=== PATIENT | male | born 1955 | race Caucasian/White ===

== ENCOUNTER 2019-02-25 08:55 | Inpatient (IN) ==
--- NOTE | 2019-02-17 15:51 | PAT Medication Instructions ---
Medication Instructions Date of Service February 17, 2019 Home Medications duloxetine [Cymbalta] 120 mg PO QAM finasteride 5 mg PO QAM lamotrigine 50 mg PO HS levothyroxine 75 mcg PO QAM lisinopril [Prinivil] 40 mg PO QAM methocarbamol [Robaxin-750] 750 mg PO Q8H PRN tamsulosin [Flomax] 0.8 mg PO QAM DO NOT take the morning of surgery lisinopril [Prinivil] 40 mg PO QAM methocarbamol [Robaxin-750] 750 mg PO Q8H PRN Take morning of surgery With a small sip of water, OTHERWISE NOTHING TO EAT OR DRINK AFTER MIDNIGHT: duloxetine [Cymbalta] 120 mg PO QAM finasteride 5 mg PO QAM levothyroxine 75 mcg PO QAM tamsulosin [Flomax] 0.8 mg PO QAM Take evening before surgery lamotrigine 50 mg PO HS methocarbamol [Robaxin-750] 750 mg PO Q8H PRN (if needed) Other Notes If you have any questions please call us at [phone] or [phone] or [phone] or [phone]
--- NOTE | 2019-02-18 12:01 | Anesthesiology Consultation ---
Date of Service February 18, 2019 Assessment & Plan (1) Encounter for pre-operative examination: Hx glidescope intubation: L3-L4 decompression/fusion, L4-S1 hardware removal: 03/10/18: Glidescope#3, ETT 8.0 at [facility] Chart Review Chart Review: Acceptable Risk for Surgery and Patient seen in Pre Admission Akiko costa Teaching & Discussion Pre-Anesthesia Teaching/Discussion Notes: Instructed NPO after midnight before surgery,except medications with 15 cc of water. Medication instructions provided according to the PAT guidelines. History Surgery Operation Date: 02/23/19 15:45 Proposed Procedures p C5 Corpectomy, C4-C6 Fusion with Spinal Cord Monitoring - Ken Hill DO Operation Date: 02/25/19 10:35 Proposed Procedures p C4-C6 Anterior Cervical Discectomy and Fusion, C5 Corpectomy with Spinal Cord Monitoring - Ken Hill DO Height/Weight Height: 6 ft 1 in Weight: 130.1 kg Allergies Allergy/AdvReac Type Severity Reaction Status Date / Time bupropion AdvReac Unknown INCREASED Verified 02/17/19 08:28 ANXIETY Medications Home Medications Medication Instructions Recorded Confirmed Last Taken duloxetine [Cymbalta] 120 mg PO QAM 02/17/19 02/17/19 Unknown finasteride 5 mg PO QAM 02/17/19 02/17/19 Unknown lamotrigine 50 mg PO HS 02/17/19 02/17/19 Unknown levothyroxine 75 mcg PO QAM 02/17/19 02/17/19 Unknown lisinopril [Prinivil] 40 mg PO QAM 02/17/19 02/17/19 Unknown methocarbamol [Robaxin-750] 750 mg PO Q8H PRN 02/17/19 02/17/19 Unknown tamsulosin [Flomax] 0.8 mg PO QAM 02/17/19 02/17/19 Unknown Past Medical History Medical History Anxiety BPH (benign prostatic hyperplasia) Depression HTN (hypertension) Hearing deficit B/L WILEY Hypothyroidism Obesity Osteoarthritis Sleep apnea CPAP Spinal stenosis Exercise / Class Metabolic Activity III < 4 Walking/Shop/Light housework Past Surgical History Surgical History History of colonoscopy History of inguinal herniorrhaphy RT History of lumbar fusion Past Anesthesia History Difficult Airway ( Hx glidescope intubation: L3-L4 decompression/fusion, L4-S1 hardware removal: 03/10/18: Glidescope#3, ETT 8.0 at [facility]) and No Family Hx of Anesthesia Complications History of PONV No Hx of PONV and No Hx of Motion Sickness STOP BANG Total 8 Social History Smoking Status: Former smoker tobacco type: cigarettes Do You Dip or Chew Tobacco: No Smoking End Date: QUIT 30 YEARS AGO Hx Alcohol Use: No Hx Substance Use: No substance use type: does not use Review of Systems Patient denies chest pain, shortness of breath, reflux, cough, wheezing, palpitations. Physical Exam Vital Signs VITALS BP 136/84 P 75 TEMP 98.3 SP02 96%RA RESP 16 PHYSICAL Significant decreased cervical extension 2/2 cervicalgia/stiffness. Full TMJ range of motion. 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 Testing Laboratory Results 02/18/19 12:20 PT 10.3 Seconds (9.0-12.0) 02/18/19 12:20 INR 1.0 (0.9-1.1) 02/18/19 12:20 APTT 26.7 Seconds (21.0-31.0) 02/18/19 12:20 Urine Color Yellow 02/18/19 12:20 Urine Appearance Clear (Clear) 02/18/19 12:20 Urine pH 5.0 (4.5-7.5) 02/18/19 12:20 Ur Specific [place] 1.014 (1.000-1.030) 02/18/19 12:20 Urine Protein Negative (Negative) 02/18/19 12:20 Urine Glucose (UA) Negative (Negative) 02/18/19 12:20 Urine Ketones Negative (Negative) 02/18/19 12:20 Urine Nitrite Negative (Negative) 02/18/19 12:20 Ur Leukocyte Esterase Negative (Negative) 02/18/19 12:20 Blood Type O Positive 02/18/19 12:20 Antibody Screen NEGATIVE 02/18/19 12:20 02/11/19 WBC 7.6 H/H 15.4/46.5 PLATELETS 269 Electrocardiogram Date: 02/11/19 NSR at 63bpm. RBBB. Chest X-Ray Date: 02/11/19 There are calcified (old) granuloma in RLL and left perihilar region. Heart moderately enlarged. No acute infiltrate or acute failure. No active disease.
[2019-02-18 12:42] LABS: Appearance Urine Clear (Clear); Bilirubin Urine Negative (Negative); Blood Urine Negative (Negative); Color Urine Yellow; Glucose Urine UA Negative (Negative); Ketones Urine Negative (Negative); Leukocyte Esterase Urine Negative (Negative); Nitrite Urine Negative (Negative); Protein Urine Negative (Negative); Specific Gravity Urine 1.014 (1.000-1.030); Urobilinogen Urine Negative (Negative)
[2019-02-18 12:48] LABS: BUN Creatinine Ratio 14.6 (10-20); Calcium 8.6 mg/dl (8.5-10.1); Est GFR (Non-African American) 85.4; Potassium 4.3 mmol/L (3.5-5.1)
[2019-02-18 12:51] LABS: Partial Thromboplastin Time 26.7 Seconds (21.0-31.0); Prothrombin Time 10.3 Seconds (9.0-12.0)
[~2019-02-25 08:55] MED LIST: CEFAZOLIN 3000MG 65 ML IV SCH; LR 15ML/HR IV SCH
[2019-02-25] MEDS ORDERED: ATROPINE SULFATE 0.1 MG/ML 10ML SYR IV PRN (10:11)
[2019-02-25] MEDS ORDERED: ePHEDrine sulfate 50 MG/ML AMP IV PRN (10:11)
--- NOTE | 2019-02-25 10:18 | History & Physical Bridge Note ---
Date of Service February 25, 2019 History & Physical Bridge Note I have examined the patient, reviewed the History & Physical and in the interval since the performance of the History & Physical I have noted the following changes of clinical significance: no changes noted
--- NOTE | 2019-02-25 10:19 | History & Physical Report ---
Date of Service February 25, 2019 Assessment & Plan (1) Cervical stenosis of spinal canal: C4-C6 fusion C5 corpectomy Present on Admission?: Yes History of Present Illness Chief Complaint: Neck and arm pain Primary Care Provider: Rex Law MD This is a 63-year-old male that presents with chronic persistent neck and arm pain. After failing course of nonoperative care is here for surgical intervention. Allergies Allergy/AdvReac Type Severity Reaction Status Date / Time bupropion AdvReac Unknown INCREASED Verified 02/25/19 09:18 ANXIETY Home Medications Home Medications Medication Instructions Recorded Confirmed Type duloxetine [Cymbalta] 120 mg PO QAM 02/17/19 02/25/19 History finasteride 5 mg PO QAM 02/17/19 02/25/19 History lamotrigine 50 mg PO HS 02/17/19 02/25/19 History levothyroxine 75 mcg PO QAM 02/17/19 02/25/19 History lisinopril [Prinivil] 40 mg PO QAM 02/17/19 02/25/19 History methocarbamol [Robaxin-750] 750 mg PO Q8H PRN 02/17/19 02/25/19 History tamsulosin [Flomax] 0.8 mg PO QAM 02/17/19 02/25/19 History Past Med/Surg History Medical History Anxiety BPH (benign prostatic hyperplasia) Depression HTN (hypertension) Hearing deficit B/L WILEY Hypothyroidism Obesity Osteoarthritis Sleep apnea CPAP Spinal stenosis Surgical History History of colonoscopy History of inguinal herniorrhaphy RT History of lumbar fusion Social History Preferred Language: Belgian Communication Ability: Effective Yacht Builder Required: No Beliefs That Will Affect Care: None Current Living Situation: Spouse Other Information That Helps Us Care for You: No Feels Safe at Home: Yes Safety Concerns: Feels Safe At This Time Smoking Status: Former smoker Tobacco Type: cigarettes ; Do You Dip or Chew Tobacco: No ; Smoking End Date: QUIT 30 YEARS AGO ; Second Hand Exposure: No ; Tobacco Cessation Education Requested by Patient: No Hx Alcohol Use: No Hx Substance Use: No Physical Exam Physical Exam: Patient is alert and oriented neurologically intact. Results & Data Vital Signs (Past 12 Hours) Vital Signs Temp Pulse Resp BP Pulse Ox 02/25/19 09:05 37 C 72 20 155/91 H 98
[2019-02-25] MEDS ORDERED: BACITRACIN INJ 50,000 UNIT VIAL ONE (10:22)
[2019-02-25] MEDS ORDERED: NEOSTIGMINE METHYLSULFATE 1 MG/ML 10ML VIAL ONE (10:23)
[2019-02-25] MEDS ORDERED: ePHEDrine sulfate 50 MG/ML AMP ONE (10:23)
[2019-02-25] MEDS ORDERED: GLYCOPYRROLATE 0.2 MG/ML VIAL ONE (10:23)
[2019-02-25] MEDS ORDERED: DEXAMETHASONE SOD INJ 4 MG/ML VIAL ONE (10:23)
[2019-02-25] MEDS ORDERED: PHENYLEPHRINE HCL 10 MG/ML VIAL ONE (10:23)
[2019-02-25] MEDS ORDERED: ONDANSETRON INJ 2 MG/ML 2 ML VIAL ONE (10:23)
[2019-02-25] MEDS ORDERED: SUCCINYLCHOLINE CHLORIDE 20 MG/ML 10 ML VIAL ONE (10:23)
[2019-02-25] MEDS ORDERED: PROPOFOL IV EMULSION 10 MG/ML 20 ML VIAL IV ONE ×3 (10:23→12:06)
[2019-02-25] MEDS ORDERED: LIDOCAINE HCL 2% 2 ML VIAL/AMP(20MG/ML) INFIL ONE (10:23)
[2019-02-25] MEDS ORDERED: MIDAZOLAM HCL 1 MG/ML 2ML VIAL ONE (10:24)
[2019-02-25] MEDS ORDERED: fentaNYL citrate 100 MCG/2 ML VIAL ONE ×2 (10:24→11:56)
[2019-02-25] MEDS ORDERED: HYDROmorphone INJ 2 MG/ML SYR/VIAL ONE (11:51)
[2019-02-25] MEDS ORDERED: ROCURONIUM BROMIDE 10 MG/ML 5 ML VIAL ONE (12:06)
[2019-02-25] MEDS ORDERED: FLOSEAL HEMOSTATIC MATRIX 10ML TOP ONE (12:31)
--- NOTE | 2019-02-25 12:39 | Operative Report ---
Post Operative Report Pre & Post Diagnosis Operation Date: 02/23/19 15:45 <No data on this case meets the specified criteria> Operation Date: 02/25/19 10:35 Pre-Op Diagnosis: Cervical spinal stenosis with myeloradiculopathy Post-Op Diagnosis: Same Procedure Operation Date: 02/23/19 15:45 <No data on this case meets the specified criteria> Operation Date: 02/25/19 10:35 Actual Procedures #1 anterior cervical corpectomy with bilateral foraminotomies C5. #2 anterior cervical arthrodesis C4-C6. #3 placement of Spira titanium cage 27 mm in height C4-C6. #4 placement of locally harvested morselized autograft combined with DBM and interbody cage. #5 placement of alvarez plate and screws from C4-C6. Surgeon Ken Hill, DO Crucible Packer None Estimated Blood Loss 25 Findings See Below Patient is 6 foot 1 inches tall weighing over 128 kg with a BMI in excess of 37. Patient's body habitus added significant technical difficulty both with patient positioning exposure and performing the decompression of the spine. It added at least 40% increase in operative time. Specimens None Indications This is a 63-year-old male well-known to me that presents with above-mentioned diagnosis in light of his cord compression and myelomalacia elected to undergo the above-mentioned procedure. Description of Procedure Patient was met with identified and informed consent obtained. Patient was then taken to the operative suite underwent intubation placed in the supine position the head Mcmullen head of history. All bony prominences well-padded eyes inspected to ensure no external pressure placed upon the peer at this point the anterior cervical spine was prepped and draped in a normal sterile fashion. Sharp dissection with the assistance of bipolar electrocautery was then performed exposing the anterior cervical spine from C4-C6. A self retainer retractor was placed. I then performed a complete discectomy of C4-5 out to the uncovertebral joints bilaterally followed byc5 6. [place] distracting pins were then placed in C4 and C6 to distract across the C5 vertebral body. A complete corpectomy was then performed including removal of all posterior annular fibers longitudinal ligament and a herniated fragment as well as bilateral foraminotomies. The endplates were then burred to subcortical being bone and a 27 mm titanium cage filled with locally harvested morselized autograft and DBM bone graft tapped in position. Distraction apparatus was removed and a alvarez plate and screws applied with the assistance of fluoroscopy. The incision was then copiously irrigated explored to ensure no damage to surrounding structures remaining bleeding. A 10 round VINI drain was inserted. The incision was closed with 2 Vicryl in the fashion of 4 Monocryl for final skin closure. Steri-Strip sterile dressings placed. Patient was awakened taken to PACU stable condition. Please note spinal cord monitoring was utilized throughout the procedure no changes noted. I attest to the content of the Intraoperative Record and any orders documented therein. Any exceptions are noted below.
--- NOTE | 2019-02-25 12:52 | Fluoroscopy Report ---
FL cervical 2-3V CLINICAL HISTORY: C4-C6 ACDF, C5 CORPECTOMY COMPARISON STUDY: None. FLUOROSCOPY TIME: 12 seconds. FINDINGS: 2 fluoroscopic spot images of the cervical spine demonstrate anterior cervical discectomy a nd fusion from C4 through C6 with a C5 corpectomy and metallic cage. Hardware appears intact. IMPRESSION: Fluoroscopy provided for C4-C6 ACDF. Electronically signed by: Pernell Limon M.D. 02/25/2019 12:51 PM
[2019-02-25] MEDS: HYDROmorphone INJ 2 MG/ML SYR/VIAL IV PRN ×4 (13:07→13:30)
[2019-02-25] MEDS: HYDROmorphone INJ 0.5 MG/0.5 ML SYR IV PRN ×3 (13:36→18:30)
[2019-02-25] MEDS ORDERED: MAGNESIUM HYDROXIDE SUSP 30 ML UDC PO PRN (14:53)
[2019-02-25] MEDS ORDERED: METHOCARBAMOL 750 MG TABLET PO PRN (14:53)
[2019-02-25] MEDS ORDERED: NALOXONE HCL 0.4 MG/1 ML VIAL/CARP IV PRN (14:53)
[2019-02-25] MEDS ORDERED: RACEPINEPHRINE 2.25% NEBU SOLN 0.5 ML VIAL INH PRN (14:53)
[2019-02-25] MEDS ORDERED: DEXAMETHASONE SOD PHOSPHATE 8 MG in SYRINGE 0 ML IV PRN (14:53)
[2019-02-25] MEDS ORDERED: ACETAMINOPHEN 1,000 MG/100 ML VIAL IV PRN (14:53)
[2019-02-25] MEDS ORDERED: DO NOT ADMINISTER PNEUMOCOCCAL VACCINE PRN (14:53)
[2019-02-25] MEDS ORDERED: DiphenhydrAMINE HCL 50 MG/ML VIAL IV PRN (14:53)
[2019-02-25] MEDS ORDERED: LORazepam 0.5 MG/1 ML VIAL IV PRN (14:53)
[2019-02-25] MEDS ORDERED: HYDROmorphone INJ 0.5 MG/0.5 ML SYR IV PRN (14:53)
[2019-02-25] MEDS ORDERED: DO NOT ADMINISTER FLU VACCINE PRN (14:53)
[2019-02-25] MEDS ORDERED: LORazepam 0.5 MG TAB PO PRN (14:53)
[2019-02-25] MEDS: SODIUM CHLORIDE 0.9% 1000ML 1,000 ML IV SCH (15:11)
[2019-02-25] MEDS ORDERED: SCOPOLAMINE 1.5 MG TDSY TD SCH (15:15)
--- NOTE | 2019-02-25 16:23 | Anesthesiology Progress Note ---
Date of Service February 25, 2019 Anesthesia Post Procedure Vital Signs Vital Signs: Temp Pulse Pulse Resp BP Pulse Ox 02/25/19 15:43 36.7 C 88 16 123/70 94 02/25/19 15:30 86 20 97 02/25/19 15:15 36.6 C 83 15 130/74 95 02/25/19 14:45 36.6 C 90 15 144/82 H 96 02/25/19 14:20 92 H 14 137/81 94 02/25/19 14:10 87 14 153/95 H 94 02/25/19 14:00 36.6 C 78 14 157/88 H 95 02/25/19 13:50 78 14 155/86 H 93 02/25/19 13:40 82 16 167/89 H 96 02/25/19 13:30 83 16 168/95 H 93 02/25/19 13:20 82 16 161/97 H 96 02/25/19 13:10 81 14 180/91 H 95 02/25/19 13:00 91 H 14 166/85 H 95 02/25/19 12:54 36.2 C L 92 H 14 174/99 H 94 02/25/19 09:05 37 C 72 20 155/91 H 98 Pain Intensity Lower Neck: Pain Intensity: 4 Transfer of Care Handoff Completed per policy Notes Mental Status: alert / awake / arousable Patient Amnestic to Procedure: Yes Nausea / Vomiting: adequately controlled Pain: adequately controlled Airway Patency, RR, SpO2: stable & adequate BP & HR: stable & adequate Hydration State: stable & adequate Anesthetic Complications: no major complications apparent and Pt Satisfied with anesthetic care
[2019-02-25] MEDS: OXYCODONE HCL IR 5 MG TAB (IMMEDIATE RELEASE) PO PRN ×2 (17:22→23:00)
[2019-02-25] MEDS: CEFAZOLIN 2000MG 2,000 MG/15 ML SYR IV SCH (18:24)
[2019-02-25] MEDS ORDERED: HYDROmorphone INJ 1 MG/ML SYRINGE ONE (18:42)
[2019-02-25] MEDS: lamoTRIgine 25 MG TAB PO SCH (20:37)
[2019-02-25] MEDS: DOCUSATE SODIUM 100 MG CAP PO SCH (20:37)
[2019-02-25] MEDS: HYDROmorphone INJ 1 MG/ML SYRINGE IV PRN (20:37)
[2019-02-25] MEDS: CHECK SCOPOLAMINE PATCH PLACEMENT SCH (23:49)
[2019-02-26] MEDS: ONDANSETRON INJ 2 MG/ML 2 ML VIAL IV PRN ×2 (01:41→11:15)
[2019-02-26] MEDS: CEFAZOLIN 2000MG 2,000 MG/15 ML SYR IV SCH ×2 (02:00→11:07)
[2019-02-26] MEDS: HYDROmorphone INJ 1 MG/ML SYRINGE IV PRN ×3 (02:15→14:13)
[2019-02-26] MEDS: SODIUM CHLORIDE 0.9% 1000ML 1,000 ML IV SCH (03:58)
[2019-02-26] MEDS: LEVOTHYROXINE SODIUM 75 MCG TABLET PO SCH (05:52)
[2019-02-26] MEDS: OXYCODONE HCL IR 5 MG TAB (IMMEDIATE RELEASE) PO PRN ×3 (07:21→17:41)
[2019-02-26] MEDS: DOCUSATE SODIUM 100 MG CAP PO SCH ×2 (08:30→20:40)
[2019-02-26] MEDS: TAMSULOSIN HCL 0.4 MG CAP PO SCH (08:30)
[2019-02-26] MEDS: LISINOPRIL 40 MG TAB PO SCH (08:30)
[2019-02-26] MEDS: FINASTERIDE 5 MG TAB PO SCH (08:31)
[2019-02-26] MEDS: DULOXETINE HCL 60 MG CAP PO SCH (08:32)
[2019-02-26] MEDS: CHECK SCOPOLAMINE PATCH PLACEMENT SCH ×3 (08:37→23:25)
--- NOTE | 2019-02-26 10:15 | Orthopedic Progress Note ---
Date of Service February 26, 2019 Assessment & Plan (1) Cervical stenosis of spinal canal: At this time he is having some difficulty swallowing. He has no hoarseness. I will initiate a course of IV Decadron to help with his swelling. We will continue on a clear liquid diet. He may ambulate as tolerated. We will maintain the drain today. Present on Admission?: Yes Subjective Patient complaining of some anterior neck pain. Arm symptoms markedly improved. He is swallowing liquids but not solids at this time. Physical Exam Physical Exam: On exam his neck is supple. There is no evidence of swelling. There is no drainage. He has excellent strength testing upper extremities. Results & Data Vital Signs (Past 12 Hours) Vital Signs Temp Pulse Pulse Resp BP BP Pulse Ox 02/26/19 09:50 37 C 70 14 125/73 94 02/26/19 07:29 37 C 67 16 126/73 96 02/26/19 07:19 72 16 93 02/26/19 05:50 36.8 C 66 16 152/83 H 98 02/26/19 03:50 36.7 C 76 16 134/77 97 02/26/19 03:40 75 14 96 02/26/19 01:54 36.9 C 78 18 160/85 H 93 02/25/19 23:55 36.6 C 72 16 137/82 95 02/25/19 23:05 88 16 96
[2019-02-26] MEDS: LACTATED RINGER'S 1,000 ML IV SCH ×2 (11:07→19:51)
[2019-02-26] MEDS: DEXAMETHASONE SOD PHOSPHATE 8 MG in SYRINGE 0 ML IV SCH ×3 (11:08→23:24)
[2019-02-26] MEDS: lamoTRIgine 25 MG TAB PO SCH (20:40)
[2019-02-26 22:58] VITALS: TEMP 97.9
[2019-02-27] MEDS: LEVOTHYROXINE SODIUM 75 MCG TABLET PO SCH (05:40)
[2019-02-27] MEDS: DEXAMETHASONE SOD PHOSPHATE 8 MG in SYRINGE 0 ML IV SCH ×2 (05:41→10:41)
[2019-02-27] MEDS: CHECK SCOPOLAMINE PATCH PLACEMENT SCH (08:05)
[2019-02-27] MEDS: LISINOPRIL 40 MG TAB PO SCH (08:05)
[2019-02-27] MEDS: DOCUSATE SODIUM 100 MG CAP PO SCH (08:05)
[2019-02-27] MEDS: TAMSULOSIN HCL 0.4 MG CAP PO SCH (08:05)
[2019-02-27] MEDS: FINASTERIDE 5 MG TAB PO SCH (08:05)
[2019-02-27] MEDS: DULOXETINE HCL 60 MG CAP PO SCH (08:05)
[2019-02-27 08:45] VITALS: BP 150/85
[2019-02-27 11:01] VITALS: PULSE 65; O2SAT 95
--- NOTE | 2019-02-27 11:36 | Discharge Summary ---
Date of Service February 27, 2019 Admission HPI Per Admitting Provider This is a 63-year-old male that presents with chronic persistent neck and arm pain. After failing course of nonoperative care is here for surgical intervention. Principal Diagnosis Cervical spinal stenosis with myeloradiculopathy Discharge Data Allergies Allergy/AdvReac Type Severity Reaction Status Date / Time bupropion AdvReac Unknown INCREASED Verified 02/25/19 09:18 ANXIETY Procedures Performed Operation Date: 02/23/19 15:45 <No data on this case meets the specified criteria> Operation Date: 02/25/19 10:35 Actual Procedures p C4-C6 Anterior Cervical Discectomy and Fusion, C5 Corpectomy with Spinal Cord Monitoring - Ken Hill DO Ordered Studies 02/25/19 10:35 FL cervical 2-3V Routine FL fluoroscopy <1hr Routine Hospital Course (1) Cervical stenosis of spinal canal: Patient underwent anterior cervical corpectomy tolerated as well as taken to the orthopedic floor postoperatively. Postop day #1 his arm symptoms are markedly improved. He is struggling with some cervicalgia and swallowing diffic ulties. I initiated a course of IV Decadron and IV fluids. The following day he was improved substantially. VINI drain putting out 5 cc. Subsequently discharged home. Discharge orders instructions found in the chart for further review. Total Time Total Time Spent Total Time Spent (In Minutes): 20 minutes Discharge Plan Discharge Items Patient Disposition: Home - Self-Care Reason For Visit: Spinal Stenosis, Cervical Region Discharge Diagnosis: Cervical spinal stenosis with myeloradiculopathy Discharge Goals: Improve function Activity: Per 'Additional Instructions' section Non-emergency contact: Primary Care Provider Call non-emergency contact if: you have any medication questions Follow-up/Referrals: Rex Law MD [Primary Care Provider] - Diet: Regular Addtl Provider Instructions: ACTIVITY RECOMMENDATIONS: SELF CARE INSTRUCTIONS AFTER CERVICAL FUSIONS 1. No smoking. Smoking drastically decreases the chance of a solid fusion. 2. No bending, lifting more than 5 pounds, or twisting (roll like a log when turning in bed). 3. You may shower 3 days after surgery. Thoroughly dry wound. Do not soak in the tub. 4. Cervical collar: Must be worn at all times including sleeping. You may remove the brace only to bath, eat and if you are sitting in a recliner. 5. Please walk as much as you can for exercise. Gradually increase the distance that you walk as your endurance increases. SPECIAL CARE INSTRUCTIONS: VERY IMPORTANT TO READ AND REVIEW A. Do not take any anti-inflammatory medications (i.e. Indocin, Advil, Aspirin, Naprosyn, Aleve, Motrin, etc.) as these may inhibit the chance of a solid fusion. Tylenol is okay to take. B. Your surgical incision has been closed with a cosmetic suture under the skin that will dissolve in about 6 weeks. In 14 days, you can use a pair of clean scissors and cut the suture that is left outside of the skin at the ends of your incision. C. Complications are uncommon, but please contact us if you have any signs or symptoms of: 1. wound infection (fever higher than 102.5 degrees F, redness, separation of wound, drainage, or increasing pain from the incision) 2. blood clots in legs (pain, swelling, redness and warmth in legs) 3. urinary tract infection (fever higher than 102.5 degrees, burning upon urination or increased frequency of urination) 4. nerve problems (inability to walk on your toes or heels, numbness, loss of bowel or bladder control) 5. any other symptoms that concern you. D. Please call the office at if you have any concerns or questions about your operation or recovery. MANAGING PAIN AFTER SPINAL SURGERY 1. Narcotic medication is intended for short-term use and will be provided for surgical pain. Surgical pain usually lasts for a period of 4-6 weeks. Narcotic medication includes Percocet, Vicodin, Darvocet, Tylenol #3 or Lortab. 2. Longer-term pain is more appropriately treated with non-narcotic medication such as Tylenol ES. 3. Muscle spasm is not appropriately treated with narcotics. Muscle relaxers such as Soma, Flexeril or Skelaxin can be used along with Tylenol ES. 4. Remember that we all live with some "aches and pains". This is not unusual or uncommon after an injury or as we get older. 5. We will provide appropriate medication within the normal guidelines of their prescribed use. We will also be very cautious and aware of potential abuse and extended duration of patients' medication needs. 6. Please allow 2-3 days to process refills. Prescriptions will not be mailed but must be picked up at the office. FOLLOW UP VISIT: Keep your scheduled follow-up appointment. Any questions, please call the office at . Prescriptions: New oxycodone 5 mg Tablet 5 mg PO Q4H PRN (Reason: Pain) Qty: 30 RF: 0 Continued lisinopril [Prinivil] 20 mg Tablet 40 mg PO QAM RF: 0 lamotrigine 25 mg Tablet 50 mg PO HS RF: 0 levothyroxine 75 mcg Tablet 75 mcg PO QAM RF: 0 methocarbamol [Robaxin-750] 750 mg Tablet 750 mg PO Q8H PRN (Reason: Muscle Spasm) RF: 0 tamsulosin [Flomax] 0.4 mg Capsule 0.8 mg PO QAM RF: 0 finasteride 5 mg Tablet 5 mg PO QAM RF: 0 duloxetine [Cymbalta] 60 mg Capsule,Delayed Release(Dr/Ec) 120 mg PO QAM RF: 0 Stand-Alone Forms: [facility] Discharge Orders: Discharge Order (Routine); Ordered 02/27/19 Ordered By: Ken Hill Admission Data Admit Date/Time: 02/25/19 12:43 Attending Provider: Ken Hill Admit Provider: Ken Hill Primary Care Provider: Rex Law I. Service: Surgical Services
[2019-02-27] MEDS ORDERED: BISACODYL 5 MG TABEC PO PRN (12:42)
== END 2019-02-27 12:48 | disposition home or self-care (01) | DRG 472 ==
LOC: ASU 08:55 → 3E 12:43

== ENCOUNTER 2019-06-01 05:55 | Inpatient (IN) ==
--- NOTE | 2019-05-17 08:54 | Anesthesiology Consultation ---
Date of Service May 17, 2019 Assessment & Plan (1) Encounter for pre-operative examination: Chart Review Chart Review: Acceptable Risk for Surgery and Patient seen in Pre Admission Testing Consults Requested none History Surgery Operation Date: 06/01/19 13:05 Proposed Procedures p Spinal Cord Stimulator Trial - Ken Hill DO Height/Weight Height: 6 ft 1 in Weight: 132.9 kg Allergies Allergy/AdvReac Type Severity Reaction Status Date / Time bupropion AdvReac Unknown INCREASED Verified 05/11/19 14:32 ANXIETY Medications Home Medications Medication Instructions Recorded Confirmed Last Taken duloxetine [Cymbalta] 120 mg PO QAM 02/17/19 05/11/19 02/25/19 06:00 finasteride 5 mg PO QAM 02/17/19 05/11/19 02/25/19 06:00 lamotrigine 50 mg PO HS 02/17/19 05/11/19 02/24/19 20:00 levothyroxine 75 mcg PO QAM 02/17/19 05/11/19 02/25/19 06:00 lisinopril [Prinivil] 40 mg PO QAM 02/17/19 05/11/19 02/24/19 07:00 methocarbamol [Robaxin-750] 750 mg PO Q8H PRN 02/17/19 05/11/19 3 Days Ago ~02/22/19 tamsulosin [Flomax] 0.8 mg PO QAM 02/17/19 05/11/19 02/25/19 06:00 Past Medical History Medical History Anxiety BPH (benign prostatic hyperplasia) Chronic back pain ALSO TESTICULAR PAIN Depression HTN (hypertension) Hearing deficit B/L WILEY Hypothyroidism Obesity Osteoarthritis Sleep apnea CPAP Spinal stenosis Exercise / Class Metabolic Activity II 4-5 Yardwork/Stairs/Walk up hill Past Surgical History Surgical History History of colonoscopy History of inguinal herniorrhaphy RT History of lumbar fusion Hx of cervical spine surgery 02/25/2019. Grade 1 view. Elective glidescope #4. NO issues. Past Anesthesia History No Hx of Anesthesia Complications and No Family Hx of Anesthesia Complications History of PONV No Hx of PONV and No Hx of Motion Sickness Social History Smoking Status: Former smoker tobacco type: cigarettes Do You Dip or Chew Tobacco: No Smoking End Date: 34 YR AGO Hx Alcohol Use: No Hx Substance Use: No substance use type: does not use Physical Exam Vital Signs Last Vital Signs Temp 36.9 C 05/17/19 08:34 Pulse 79 05/17/19 08:34 Resp 18 05/17/19 08:34 BP 135/83 05/17/19 08:34 Pulse Ox 97 05/17/19 08:34 Constitutional + obese ENMT Mouth: + dental restorations (cap); no TMJ abnormality, no TMJ clicking and motion of mouth not restricted Neck normal visual inspection, + short neck and + thick neck Respiratory normal respiratory effort and + respiratory distress Cardiovascular Rate/Rhythm: regular rate and regular rhythm Musculoskeletal Spine: + limited cervical ROM (slightly difficulty with swallowing liquids but able to be supine ); no pain with cervical ROM Neurologic moves all extremities Motor/Sensory: no sensory deficit Psychiatric Orientation: alert and oriented x 3 Testing Laboratory Results Labs 05/06/2019: Na 140, K 4.6, Cl 107, bicarb 29, BUN 15, creat 0.8, glucose 76 WBC 6., hgb 14.9, hct 45.1, plt 245 Electrocardiogram Date: 02/11/19 NSR at 63bpm. RBBB. Chest X-Ray Date: 02/11/19 There are calcified (old) granuloma in RLL and left perihilar region. Heart moderately enlarged. No acute infiltrate or acute failure. No active disease.
[2019-06-01] MEDS ORDERED: CeleBREX 200 MG CAP PO SCH (06:00)
[2019-06-01] MEDS ORDERED: ACETAMINOPHEN 500 MG TAB PO SCH (06:00)
[2019-06-01] MEDS ORDERED: GABAPENTIN 600 MG DOSE PO SCH (06:00)
[2019-06-01] MEDS ORDERED: LR 15ML/HR IV SCH (06:00)
[2019-06-01] MEDS ORDERED: CEFAZOLIN 3000MG 72.5 ML IV SCH (06:00)
[2019-06-01] MEDS ORDERED: fentaNYL citrate 100 MCG/2 ML VIAL ONE ×3 (06:39→08:46)
[2019-06-01] MEDS ORDERED: MIDAZOLAM HCL 1 MG/ML 2ML VIAL ONE (06:39)
[2019-06-01] MEDS ORDERED: HYDROmorphone INJ 2 MG/ML SYR/VIAL ONE (06:39)
[2019-06-01] MEDS ORDERED: BACITRACIN INJ 50,000 UNIT VIAL ONE (07:06)
[2019-06-01] MEDS ORDERED: BUPIVACAINE/EPINEPHRINE 0.25% 1:200,000 30 ML VIAL ONE (07:06)
--- NOTE | 2019-06-01 07:27 | History & Physical Bridge Note ---
Date of Service June 01, 2019 History & Physical Bridge Note I have examined the patient, reviewed the History & Physical and in the interval since the performance of the History & Physical I have noted the following changes of clinical significance: no changes noted
--- NOTE | 2019-06-01 07:29 | History & Physical Report ---
Date of Service June 01, 2019 Assessment & Plan (1) Chronic back pain greater than 3 months duration: Spinal cord stimulator trial Present on Admission?: Yes History of Present Illness Chief Complaint: Back and leg pain Primary Care Provider: Rex Law MD This is a 64-year-old male known to me that presents with chronic persistent back and leg pain. After failing extensive course of nonoperative care is here for surgical intervention. Allergies Allergy/AdvReac Type Severity Reaction Status Date / Time bupropion AdvReac Unknown INCREASED Verified 06/01/19 06:29 ANXIETY Home Medications Home Medications Medication Instructions Recorded Confirmed Type duloxetine [Cymbalta] 120 mg PO QAM 02/17/19 06/01/19 History finasteride 5 mg PO QAM 02/17/19 06/01/19 History lamotrigine 50 mg PO HS 02/17/19 06/01/19 History levothyroxine 75 mcg PO QAM 02/17/19 06/01/19 History lisinopril [Prinivil] 40 mg PO QAM 02/17/19 06/01/19 History methocarbamol [Robaxin-750] 750 mg PO Q8H PRN 02/17/19 06/01/19 History tamsulosin [Flomax] 0.8 mg PO QAM 02/17/19 06/01/19 History Past Med/Surg History Surgical History (Updated 05/17/19 @ 08:51 by Vincent Nix MD) History of colonoscopy History of inguinal herniorrhaphy RT History of lumbar fusion Hx of cervical spine surgery 02/25/2019. Grade 1 view. Elective glidescope #4. NO issues. Social History Preferred Language: German Communication Ability: Effective Zigzagger Required: No Beliefs That Will Affect Care: None Current Living Situation: Spouse Feels Safe at Home: Yes Safety Concerns: Feels Safe At This Time Smoking Status: Former smoker Tobacco Type: cigarettes ; Do You Dip or Chew Tobacco: No ; Smoking End Date: 34 YR AGO ; Second Hand Exposure: No ; Hx Alcohol Use: No Hx Substance Use: No Physical Exam Physical Exam: Patient is alert and oriented neurologically intact. Results & Data Vital Signs (Past 12 Hours) Vital Signs Temp Pulse Resp BP Pulse Ox 06/01/19 06:32 36.9 C 70 18 168/96 H 97
[2019-06-01] MEDS ORDERED: DEXAMETHASONE SOD INJ 4 MG/ML VIAL ONE (08:13)
[2019-06-01] MEDS ORDERED: ROCURONIUM BROMIDE 10 MG/ML 5 ML VIAL ONE (08:13)
[2019-06-01] MEDS ORDERED: LIDOCAINE HCL 2% 2 ML VIAL/AMP(20MG/ML) INFIL ONE (08:13)
[2019-06-01] MEDS ORDERED: ePHEDrine sulfate 50 MG/ML SYR ONE (08:13)
[2019-06-01] MEDS ORDERED: ONDANSETRON INJ 2 MG/ML 2 ML VIAL ONE (08:13)
[2019-06-01] MEDS ORDERED: NEOSTIGMINE METHYLSULFATE 1 MG/ML 10ML VIAL ONE (08:13)
[2019-06-01] MEDS ORDERED: PROPOFOL IV EMULSION 10 MG/ML 20 ML VIAL IV ONE (08:13)
[2019-06-01] MEDS ORDERED: GLYCOPYRROLATE 0.2 MG/ML VIAL ONE (08:13)
--- NOTE | 2019-06-01 08:43 | Operative Report ---
Post Operative Report Pre & Post Diagnosis Operation Date: 06/01/19 07:45 Pre-Op Diagnosis: Lumbar Postlaminectomy Syndrome Post-Op Diagnosis: Lumbar Postlaminectomy Syndrome Operation Date: 06/03/19 13:05 <No data on this case meets the specified criteria> I identified the patient and participated in the time-out.: Yes Procedure Operation Date: 06/01/19 07:45 Actual Procedures #1 L1-L2 laminotomy. #2 placement of 16-lead dorsal column stimulator paddle attached to temporary leads. Operation Date: 06/03/19 13:05 <No data on this case meets the specified criteria> Surgeon Ken Hill, DO [employer] Mechanical Designer Disha Odell Estimated Blood Loss 20 Findings Consistent with Post-Op Diagnosis Specimens None Indications This is a 64-year-old male well-known to the presents with chronic persistent back and leg pain. After failing extensive course of nonoperative care he is un dergoing the above-mentioned procedure. Description of Procedure Patient was met with identified and informed consent obtained. Patient was then taken to the operative suite underwent ablation placed in prone position the Alex table on top of the Javier frame. All bony prominences well-padded eyes inspected to ensure no external pressure placed upon. This point lumbar spine was prepped and draped in a sterile fashion. The assistance of fluoroscopy identified the L1-L2 disc space. Sharp dissection with the assistance of Bovie cautery performed on December exposing the interlaminar space at L1-2. A lumbar laminotomy was then created and I was able to place a 16-lead dorsal column stimulator paddle in the canal without difficulty. I verified my position with fluoroscopy. The paddle leads were then sewn into position. Temporary leads were then attached. They were tunneled to the left flank. And attached to the stimulator box. It was tested for efficacy. The incision was then copiously irrigated closed with subcutaneous Vicryl and Monocryl for final skin closure. Steri strip sterile dressings placed. Patient will continue PACU stable condition. Please note Disha Odell present at the entire procedure involved the patient positioning complex portions of the surgery and final skin closure. I attest to the content of the Intraoperative Record and any orders documented therein. Any exceptions are noted below.
[2019-06-01] MEDS ORDERED: fentaNYL citrate 100 MCG/2 ML VIAL IV PRN (08:58)
[2019-06-01] MEDS ORDERED: ATROPINE SULFATE 0.1 MG/ML 10ML SYR IV PRN (08:58)
[2019-06-01] MEDS ORDERED: ePHEDrine sulfate 50 MG/ML AMP IV PRN (08:58)
[2019-06-01] MEDS ORDERED: HYDROmorphone INJ 1 MG/ML SYRINGE IV PRN ×2 (08:58→09:51)
[2019-06-01] MEDS ORDERED: ONDANSETRON INJ 2 MG/ML 2 ML VIAL IV PRN (08:58)
[2019-06-01] MEDS ORDERED: LABETALOL HCL IV 5 MG/ML 20ML IV ONE (08:59)
[2019-06-01] MEDS ORDERED: ESMOLOL HCL INJ 10 MG/ML 10ML VIAL IV ONE (09:00)
[2019-06-01] MEDS ORDERED: LABETALOL HCL IV 5 MG/ML 20ML IV STA (09:00)
--- NOTE | 2019-06-01 09:26 | Anesthesiology Progress Note ---
Date of Service June 01, 2019 Anesthesia Post Procedure Vital Signs Vital Signs: Temp Pulse Pulse Resp BP Pulse Ox 06/01/19 09:00 71 16 180/108 H 94 06/01/19 08:51 36.7 C 71 16 180/108 H 94 06/01/19 06:32 36.9 C 70 18 168/96 H 97 Pain Intensity Left Groin: Pain Intensity: 4 Transfer of Care Handoff Completed per policy Notes Mental Status: alert / awake / arousable and participated in evaluation Patient Amnestic to Procedure: Yes Nausea / Vomiting: adequately controlled Pain: adequately controlled Airway Patency, RR, SpO2: stable & adequate BP & HR: stable & adequate Hydration State: stable & adequate Anesthetic Complications: no major complications apparent and Pt Satisfied with anesthetic care
--- NOTE | 2019-06-01 09:35 | Fluoroscopy Report ---
FL spine 1V any level CLINICAL HISTORY: 64 years-old Male presenting with SPINAL CORD STIMULATOR TRIAL. TECHNIQUE: 1 fluoroscopic image(s) recorded as part of an intraoperative procedure. COMPARISON: 03/09/2018. FINDINGS/IMPRESSION: Spinal stimulator projects over the thoracolumbar junction. Surgical consultation is also present. Please see surgical report for further details. Fluoroscopy dosage (mGy): 12.73. Fluoroscopy time: 12.2 seconds. Number or time of high level fluoroscopy (HLF), digital spot, or digital subtraction images: 0. Electronically signed by: Dario Ruiz M.D. 06/01/2019 9:33 AM
[2019-06-01] MEDS ORDERED: DO NOT ADMINISTER PNEUMOCOCCAL VACCINE PRN (09:51)
[2019-06-01] MEDS ORDERED: METHOCARBAMOL 750 MG TABLET PO PRN (09:51)
[2019-06-01] MEDS ORDERED: ACETAMINOPHEN 500 MG TAB PO PRN (09:51)
[2019-06-01] MEDS ORDERED: MAGNESIUM HYDROXIDE SUSP 30 ML UDC PO PRN (09:51)
[2019-06-01] MEDS ORDERED: LORazepam 1 MG TAB PO PRN (09:51)
[2019-06-01] MEDS ORDERED: DO NOT ADMINISTER FLU VACCINE PRN (09:51)
[2019-06-01] MEDS ORDERED: ACETAMINOPHEN 325 MG TAB PO PRN (09:51)
[2019-06-01] MEDS ORDERED: LORazepam 1 MG/2 ML VIAL IV PRN (09:51)
[2019-06-01] MEDS: LACTATED RINGER'S 1,000 ML IV SCH ×2 (10:21→22:37)
[2019-06-01] MEDS ORDERED: KETOROLAC 30 MG/ML VIAL ONE (10:31)
[2019-06-01] MEDS: lisinopriL 40 MG TAB PO SCH (11:40)
[2019-06-01] MEDS: FINASTERIDE 5 MG TAB PO SCH (11:40)
[2019-06-01] MEDS: DOCUSATE SODIUM 100 MG CAP PO SCH ×2 (11:41→20:31)
[2019-06-01] MEDS: TAMSULOSIN HCL 0.4 MG CAP PO SCH (11:41)
[2019-06-01] MEDS: OXYCODONE HCL IR 5 MG TAB (IMMEDIATE RELEASE) PO PRN ×2 (11:45→20:31)
[2019-06-01] MEDS ORDERED: LARYING-O-JET KIT (LTA) ONE (14:12)
[2019-06-01] MEDS: CEFAZOLIN 2000MG 2,000 MG/15 ML SYR IV SCH ×2 (16:55→23:39)
[2019-06-01] MEDS: lamoTRIgine 25 MG TAB PO SCH (20:31)
[2019-06-02] MEDS: LEVOTHYROXINE SODIUM 75 MCG TABLET PO SCH (05:46)
[2019-06-02] MEDS: DOCUSATE SODIUM 100 MG CAP PO SCH ×2 (07:30→20:18)
[2019-06-02] MEDS: TAMSULOSIN HCL 0.4 MG CAP PO SCH (07:30)
[2019-06-02] MEDS: lisinopriL 40 MG TAB PO SCH ×2 (07:30)
[2019-06-02] MEDS: FINASTERIDE 5 MG TAB PO SCH (07:30)
[2019-06-02] MEDS: DULOXETINE HCL 60 MG CAP PO SCH (07:31)
[2019-06-02] MEDS: CEFAZOLIN 2000MG 2,000 MG/15 ML SYR IV SCH (07:34)
--- NOTE | 2019-06-02 10:56 | Anesthesiology Progress Note ---
Date of Service June 02, 2019 Anesthesia Post Procedure Vital Signs Vital Signs: Temp Pulse Pulse Resp BP Pulse Ox 06/02/19 07:00 36.8 C 61 16 134/84 99 06/02/19 02:47 36.4 C L 69 16 119/67 96 06/01/19 23:31 36.5 C 72 16 135/71 97 06/01/19 15:12 36.5 C 94 H 20 130/63 93 06/01/19 12:50 36.4 C L 74 14 146/78 H 94 06/01/19 11:48 70 16 150/85 H 95 Pain Intensity Left Groin: Pain Intensity: 4 Back: Pain Intensity: 4 Notes Mental Status: alert / awake / arousable and participated in evaluation Nausea / Vomiting: adequately controlled Pain: adequately controlled Airway Patency, RR, SpO2: stable & adequate BP & HR: stable & adequate Hydration State: stable & adequate Anesthetic Complications: no major complications apparent
--- NOTE | 2019-06-02 13:31 | Anesthesiology Consultation ---
Date of Service June 02, 2019 Assessment & Plan (1) Encounter for pre-operative examination: Chart Review Chart Review: Acceptable Risk for Surgery and Patient NOT seen in Pre Admission Testing Consults Requested none History Surgery Operation Date: 06/01/19 07:45 Proposed Procedures p Spinal Cord Stimulator Trial - Ken Hill DO Operation Date: 06/03/19 13:05 Proposed Procedures p Spinal Cord Stimulator Placement - Ken Hill DO Height/Weight Height: 6 ft 1 in Weight: 132.7 kg Allergies Allergy/AdvReac Type Severity Reaction Status Date / Time bupropion AdvReac Unknown INCREASED Verified 06/01/19 06:29 ANXIETY Medications Home Medications Medication Instructions Recorded Confirmed Last Taken duloxetine [Cymbalta] 120 mg PO QAM 02/17/19 06/01/19 06/01/19 05:00 finasteride 5 mg PO QAM 02/17/19 06/01/19 05/31/19 08:00 lamotrigine 50 mg PO HS 02/17/19 06/01/19 05/31/19 21:00 levothyroxine 75 mcg PO QAM 02/17/19 06/01/19 06/01/19 05:00 lisinopril [Prinivil] 40 mg PO QAM 02/17/19 06/01/19 05/30/19 08:00 methocarbamol [Robaxin-750] 750 mg PO Q8H PRN 02/17/19 06/01/19 05/31/19 08:00 tamsulosin [Flomax] 0.8 mg PO QAM 02/17/19 06/01/19 05/31/19 08:00 oxycodone 5 mg PO Q6H PRN #20 tab 06/01/19 Unknown Active Medications Generic Name Dose Route Start Last Admin Trade Name Freq PRN Reason Stop Dose Admin Docusate Sodium 100 mg 06/01/19 10:00 06/02/19 07:30 Colace PO 07/01/19 09:59 100 mg BID JAYLEEN Administration Duloxetine HCl 120 mg 06/02/19 09:00 06/02/19 07:31 Cymbalta PO 07/02/19 08:59 120 mg QAM JAYLEEN Administration Finasteride 5 mg 06/01/19 10:00 06/02/19 07:30 Proscar PO 07/01/19 09:59 5 mg QAM JAYLEEN Administration Lamotrigine 50 mg 06/01/19 21:00 06/01/19 20:31 Lamictal PO 07/01/19 20:59 50 mg HS JAYLEEN Administration Levothyroxine Sodium 75 mcg 06/02/19 06:30 06/02/19 05:46 Synthroid PO 07/02/19 06:29 75 mcg DAILYBB JAYLEEN Administration Lisinopril 40 mg 06/01/19 10:00 06/02/19 07:30 Zestril PO 07/01/19 09:59 40 mg QAM JAYLEEN Administration Oxycodone HCl 5 mg 06/01/19 09:51 06/01/19 20:31 Roxicodone Immediate Rel PO 06/15/19 09:50 5 mg Q4H PRN Administration MODERATE Pain 4,5,6 Tamsulosin HCl 0.8 mg 06/01/19 10:00 06/02/19 07:30 Flomax PO 07/01/19 09:59 0.8 mg QAM JAYLEEN Administration NPO Date Last Intake of Fluids: 06/01/19 Time Last Intake of Fluids: 05:00 Last Intake of Fluids Comment: Sip water with meds Date Last Intake of Solids: 05/31/19 Time Last Intake of Solids: 18:00 Past Medical History Medical History (Updated 06/02/19 @ 13:31 by Pernell Abraham MD) Anxiety BPH (benign prostatic hyperplasia) Chronic back pain ALSO TESTICULAR PAIN Depression Hearing deficit B/L WILEY HTN (hypertension) Hypothyroidism Obesity Osteoarthritis Sleep apnea CPAP Spinal stenosis Past Surgical History Surgical History (Updated 06/02/19 @ 13:34 by Pernell Abraham MD) History of colonoscopy History of inguinal herniorrhaphy RT History of lumbar fusion History of lumbar surgery 06/01/19 Hx of cervical spine surgery 02/25/2019. Grade 1 view. Elective glidescope #4. NO issues. Social History Smoking Status: Former smoker tobacco type: cigarettes Do You Dip or Chew Tobacco: No Smoking End Date: 34 YR AGO Hx Alcohol Use: No Hx Substance Use: No substance use type: does not use Physical Exam Vital Signs Last Vital Signs Temp 36.7 C 06/02/19 11:24 Pulse 65 06/02/19 11:24 Resp 16 06/02/19 11:24 BP 144/82 H 06/02/19 11:24 Pulse Ox 97 06/02/19 11:24 Testing Electrocardiogram Date: 02/11/19 NSR at 63bpm. RBBB. Chest X-Ray Date: 02/11/19 There are calcified (old) granuloma in RLL and left perihilar region. Heart moderately enlarged. No acute infiltrate or acute failure. No active disease.
--- NOTE | 2019-06-02 15:17 | Orthopedic Progress Note ---
Date of Service June 02, 2019 Assessment & Plan (1) Chronic back pain greater than 3 months duration: At this time we will make him n.p.o. after midnight and proceed with formal implantation of a dorsal column stimulator. Present on Admission?: Yes Subjective Patient states that his back and leg symptoms are markedly improved. Physical Exam Physical Exam: Patient is in the chair at the bedside. Is comfortable. Is good strength testing. Results & Data Vital Signs (Past 12 Hours) Vital Signs Temp Pulse Resp BP Pulse Ox 06/02/19 15:15 36.4 C L 71 16 173/90 H 97 06/02/19 11:24 36.7 C 65 16 144/82 H 97 06/02/19 07:00 36.8 C 61 16 134/84 99
[2019-06-02] MEDS: lamoTRIgine 25 MG TAB PO SCH (20:18)
[2019-06-03] MEDS: LEVOTHYROXINE SODIUM 75 MCG TABLET PO SCH (05:28)
[2019-06-03] MEDS ORDERED: bisacodyL 5 MG TABEC PO PRN (06:00)
[2019-06-03] MEDS: TAMSULOSIN HCL 0.4 MG CAP PO SCH (08:25)
[2019-06-03] MEDS: DOCUSATE SODIUM 100 MG CAP PO SCH (08:25)
[2019-06-03] MEDS: DULOXETINE HCL 60 MG CAP PO SCH (08:25)
[2019-06-03] MEDS: FINASTERIDE 5 MG TAB PO SCH (08:26)
[2019-06-03] MEDS ORDERED: POLYETHYLENE (MIRALAX) 17 GM PACK PO SCH (09:00)
[2019-06-03] MEDS ORDERED: MIDAZOLAM HCL 1 MG/ML 2ML VIAL ONE (13:32)
[2019-06-03] MEDS ORDERED: fentaNYL citrate 100 MCG/2 ML VIAL ONE (13:32)
--- NOTE | 2019-06-03 14:10 | History & Physical Bridge Note ---
Date of Service June 03, 2019 History & Physical Bridge Note I have examined the patient, reviewed the History & Physical and in the interval since the performance of the History & Physical I have noted the following changes of clinical significance: no changes noted
[2019-06-03] MEDS ORDERED: BACITRACIN INJ 50,000 UNIT VIAL ONE (14:31)
[2019-06-03] MEDS ORDERED: EPINEPHrine INJ 1 MG/ML AMP ONE (14:31)
[2019-06-03] MEDS ORDERED: BUPIVACAINE 0.5 % 5 MG/1 ML MPF 30ML VIAL ONE (14:31)
[2019-06-03] MEDS ORDERED: PROPOFOL IV EMULSION 10 MG/ML 20 ML VIAL IV ONE ×2 (15:14→15:37)
[2019-06-03] MEDS ORDERED: LIDOCAINE HCL 2% 2 ML VIAL/AMP(20MG/ML) INFIL ONE (15:37)
[2019-06-03] MEDS ORDERED: GLYCOPYRROLATE 0.2 MG/ML VIAL ONE (15:37)
[2019-06-03] MEDS ORDERED: ROCURONIUM BROMIDE 10 MG/ML 5 ML VIAL ONE (15:37)
[2019-06-03] MEDS ORDERED: ONDANSETRON INJ 2 MG/ML 2 ML VIAL ONE (15:37)
[2019-06-03] MEDS ORDERED: NEOSTIGMINE METHYLSULFATE 1 MG/ML 10ML VIAL ONE (15:37)
[2019-06-03] MEDS ORDERED: DEXAMETHASONE SOD INJ 4 MG/ML VIAL ONE (15:37)
[2019-06-03] MEDS ORDERED: FLOSEAL HEMOSTATIC MATRIX 10ML TOP ONE (15:39)
--- NOTE | 2019-06-03 15:45 | Operative Report ---
Post Operative Report Pre & Post Diagnosis Operation Date: 06/01/19 07:45 Pre-Op Diagnosis: Lumbar Postlaminectomy Syndrome Post-Op Diagnosis: Lumbar Postlaminectomy Syndrome Operation Date: 06/03/19 13:35 Pre-Op Diagnosis: Lumbar Postlaminectomy Syndrome Post-Op Diagnosis: Lumbar Postlaminectomy Syndrome I identified the patient and participated in the time-out.: Yes Procedure Operation Date: 06/01/19 07:45 Actual Procedures p Spinal Cord Stimulator Trial - Ken Hill DO Operation Date: 06/03/19 13:35 Actual Procedures #1 removal of temporary spinal cord stimulator leads. #2 placement of spinal cord stimulator battery. Surgeon Ken Hill DO Internet Developer Meliton Heard Estimated Blood Loss 20 Findings Consistent with Post-Op Diagnosis Specimens None Description of Procedure Patient was met with identified and informed consent obtained. Patient was then taken to the operative suite underwent intubation placed in the prone position the Alex table on top of the Javier frame. All bony prominences well-padded eyes inspected to ensure no external pressure placed upon the peer at this point the thoracolumbar spine was prepped and draped in a sterile fashion. I then opened the laminotomy incision at L4 1. Exposed the temporary leads. They were detached without difficulty and removed. And then created a pocket over the right flank large enough for his dorsal column stimulator battery. By way of a trocar the leads were passed to the battery pocket and attached to the battery. It was tested for efficacy and then placed within the pocket. Both incisions were closed irrigated and closed with subcutaneous Vicryl and 4-0 Monocryl for final skin closure. Steri-Strip sterile dressings placed. Patient awakened taken to PACU stable condition. Please note Meliton Heard was present throughout the entire procedure involved the patient positioning complex portions of the surgery and final skin closure. I attest to the content of the Intraoperative Record and any orders documented therein. Any exceptions are noted below.
[2019-06-03] MEDS ORDERED: ePHEDrine sulfate 50 MG/ML AMP IV PRN (15:54)
[2019-06-03] MEDS ORDERED: ATROPINE SULFATE 0.1 MG/ML 10ML SYR IV PRN (15:54)
[2019-06-03] MEDS ORDERED: ONDANSETRON INJ 2 MG/ML 2 ML VIAL IV PRN (15:54)
[2019-06-03] MEDS ORDERED: fentaNYL citrate 100 MCG/2 ML VIAL IV PRN (15:54)
[2019-06-03] MEDS ORDERED: HYDROmorphone INJ 2 MG/ML SYR/VIAL IV PRN (15:54)
--- NOTE | 2019-06-03 16:35 | Anesthesiology Progress Note ---
Date of Service June 03, 2019 Anesthesia Post Procedure Vital Signs Vital Signs: Temp Pulse Pulse Resp BP Pulse Ox 06/03/19 16:30 36.5 C 78 20 140/85 92 06/03/19 16:20 74 18 139/74 97 06/03/19 16:10 71 16 135/68 100 06/03/19 16:03 36.1 C L 74 18 173/76 H 95 06/03/19 13:30 36.9 C 78 20 153/93 H 96 06/03/19 11:29 36.7 C 70 18 146/95 H 95 06/03/19 07:40 36.7 C 66 18 143/88 H 94 06/02/19 23:38 36.6 C 63 16 136/78 97 Pain Intensity Left Groin: Pain Intensity: 1 Back: Pain Intensity: 2 Transfer of Care Handoff Completed per policy Notes Mental Status: alert / awake / arousable Patient Amnestic to Procedure: Yes Nausea / Vomiting: adequately controlled Pain: adequately controlled Airway Patency, RR, SpO2: stable & adequate BP & HR: stable & adequate Hydration State: stable & adequate Anesthetic Complications: no major complications apparent and Pt Satisfied with anesthetic care
[2019-06-03] MEDS: OXYCODONE HCL IR 5 MG TAB (IMMEDIATE RELEASE) PO PRN (17:00)
[2019-06-03 17:32] VITALS: TEMP 97.9
[2019-06-03 17:59] VITALS: PULSE 74; O2SAT 93
[2019-06-03 18:35] VITALS: BP 147/88
--- NOTE | 2019-06-24 07:43 | Discharge Summary ---
Date of Service June 24, 2019 Admission HPI Per Admitting Provider This is a 64-year-old male known to me that presents with chronic persistent back and leg pain. After failing extensive course of nonoperative care is here for surgical intervention. Principal Diagnosis Chronic back and bilateral leg pain Discharge Data Allergies Allergy/AdvReac Type Severity Reaction Status Date / Time bupropion AdvReac Unknown INCREASED Verified 06/03/19 13:29 ANXIETY Procedures Performed Operation Date: 06/01/19 07:45 Actual Procedures p Spinal Cord Stimulator Trial - Ken Hill DO Operation Date: 06/03/19 13:35 Actual Procedures p Spinal Cord Stimulator Placement(Not Applicable) - Ken Hill DO Ordered Studies 06/01/19 07:45 FL fluoroscopy <1hr Routine [place] spine 1V any level Routine Hospital Course (1) Chronic back pain greater than 3 months duration: Patient underwent spinal cord stimulator trial. Postoperatively he noted marked improvement of his symptoms. Subsequently on postop day #2 we underwent removal of temporary leads placement of permanent battery. Patient tolerated this procedure well and was subsequently discharged home. Discharge orders instructions from the chart for further review. Total Time Total Time Spent Total Time Spent (In Minutes): 20 minutes Discharge Plan Discharge Items Patient Disposition: Home - Self-Care Reason For Visit: Lumbar Postlaminectomy Syndrome Discharge Diagnosis: Lumbar postlaminectomy syndrome with chronic persistent back and leg pain. Activity: As commented below Non-emergency contact: Primary Care Provider Call non-emergency contact if: you have any medication questions Follow-up/Referrals: Rex Law MD [Primary Care Provider] - Diet: Regular Addtl Attending Provider Instructions: ACTIVITY RECOMMENDATIONS: SELF CARE INSTRUCTIONS AFTER A LAMINECTOMY 1. No prolonged sitting (less than 30 minutes for the first 3 weeks after surge ry). 2. No bending, lifting more than 5 pounds, or twisting (roll like a log when turning in bed). 3. You may shower 3 days after surgery if no drainage from wound. Thoroughly dry wound. Do not soak in the tub. 4. Please walk as much as you can for exercise. Gradually increase the distance that you walk as your endurance increases. 5. You may drive in 7-10 days if you are comfortable and no longer requiring pain medications. SPECIAL CARE INSTRUCTIONS: VERY IMPORTANT TO READ AND REVIEW A. Your surgical incision has been closed with a cosmetic suture under the skin that will dissolve in about 6 weeks. In 14 days, you can use a pair of clean scissors and cut the suture that is left outside of the skin at the ends of your incision. B. Complications are uncommon, but please contact us if you have any signs or symptoms of: 1. wound infection (fever higher than 102.5 degrees F, redness, separation of wound, drainage, or increasing pain from the incision) 2. blood clots in legs (pain, swelling, redness and warmth in legs) 3. urinary tract infection (fever higher than 102.5 degrees, burning upon urination or increased frequency of urination) 4. nerve problems (inability to walk on your toes or heels, numbness, loss of bowel or bladder control) 5. any other symptoms that concern you. C. Please call the office at if you have any concerns or questions about your operation or recovery. MANAGING PAIN AFTER SPINAL SURGERY 1. Narcotic medication is intended for short-term use and will be provided for surgical pain. Surgical pain usually lasts for a period of 4-6 weeks. Narcotic medication includes Percocet, Vicodin, Darvocet, Tylenol #3 or Lortab. 2. Longer-term pain is more appropriately treated with non-narcotic medication such as Tylenol ES. 3. Muscle spasm is not appropriately treated with narcotics. Muscle relaxers such as Soma, Flexeril or Skelaxin can be used along with Tylenol ES. 4. Remember that we all live with some "aches and pains". This is not unusual or uncommon after an injury or as we get older. 5. We will provide appropriate medication within the normal guidelines of their prescribed use. We will also be very cautious and aware of potential abuse and extended duration of patients' medication needs. 6. Please allow 2-3 days to process refills. Prescriptions will not be mailed but must be picked up at the office. FOLLOW UP VISIT: Keep your scheduled follow-up appointment. Any questions, please call the office at . Pending Studies at Discharge: No Stand-Alone Forms: [employer], Smoking Cessation Medications and DC Order Prescriptions: New oxycodone 5 mg tablet 5 mg PO Q6H PRN (Reason: pain, severe) Qty: 20 RF: 0 Continued lisinopril [Prinivil] 20 mg Tablet 40 mg PO QAM RF: 0 lamotrigine 25 mg Tablet 50 mg PO HS RF: 0 levothyroxine 75 mcg Tablet 75 mcg PO QAM RF: 0 methocarbamol [Robaxin-750] 750 mg Tablet 750 mg PO Q8H PRN (Reason: Muscle Spasm) RF: 0 tamsulosin [Flomax] 0.4 mg Capsule 0.8 mg PO QAM RF: 0 finasteride 5 mg Tablet 5 mg PO QAM RF: 0 duloxetine [Cymbalta] 60 mg Capsule,Delayed Release(Dr/Ec) 120 mg PO QAM RF: 0 Discharge Orders: Discharge Order (Routine); Ordered 06/03/19 Ordered By: Ken Hill Admission Data Admit Date/Time: 06/01/19 09:11 Attending Provider: Ken Hill Admit Provider: Ken Hill Primary Care Provider: Rex Law I. Other Interventions: Discharge Summary Assessment (RN) Last Done: 06/03/19 18:34 DC Date/Time DO NOT enter until pt leaves facility: 06/03/19 19:00
== END 2019-06-03 19:00 | disposition home or self-care (01) | DRG 518 ==
LOC: ASU 05:55 → 3E 09:11